=== PATIENT | female | born 1975 | race Asian ===

== ENCOUNTER 2017-09-03 09:41 | Inpatient (IN) | payer OTHER ==
[2017-09-03 10:34] LABS: BASO % 0.3 % (0-2.0); EOS % 1.5 % (0-4.5); HEMATOCRIT 27.7 % (32.4-45.2); HEMOGLOBIN 8.6 GM/dL (10.7-15.3); LYMPH % 19.8 % (8-40); MCHC 30.9 g/dl (32.0-36.0); MEAN CELL VOLUME 62.3 fl (80-96); MEAN PLT VOLUME 8.7 fl (7.5-11.1); MONO % 6.4 % (3.8-10.2); PLATELET COUNT 280 K/MM3 (134-434); RBC 4.45 M/mm3 (3.60-5.2); RETICULOCYTES 2.78 % (0.5-1.5); WHITE BLOOD COUNT 9.9 K/mm3 (4.0-10.0)
[2017-09-03 10:37] LABS: MCH 19.2 pg (25.7-33.7)
[2017-09-03 10:43] LABS: INR 0.87 (0.82-1.09); PROTHROMBIN TIME (PATIENT) 9.8 SEC (9.98-11.88)
[2017-09-03 10:45] LABS: ACTIVATED PTT 26.5 SECONDS (26.9-34.4)
[2017-09-03 10:57] LABS: URINE APPEARANCE SLCLOUDY; URINE BILIRUBIN NEGATIVE (NEGATIVE); URINE BLOOD NEGATIVE (NEGATIVE); URINE COLOR YELLOW; URINE GLUCOSE (UA) NEGATIVE (NEGATIVE); URINE KETONE NEGATIVE (NEGATIVE); URINE LEUK ESTERASE NEGATIVE (NEGATIVE); URINE NITRITE NEGATIVE (NEGATIVE); URINE UROBILINOGEN NEGATIVE mg/dL (0.2-1.0)
[2017-09-03 11:04] LABS: URINE PROTEIN 3+ (NEGATIVE)
[2017-09-03 11:28] LABS: EPI CELLS RARE /HPF (FEW); GRANULAR CASTS 9 /lpf; URINE BACTERIA RARE /hpf (NONE SEEN); URINE HYALINE CAST 9 /lpf; URINE MUCUS MODERATE
[2017-09-03 11:36] VITALS: BMI 36.1
[2017-09-03 11:54] LABS: ANION GAP 10 (8-16); BLOOD UREA NITROGEN 14 mg/dL (7-18); CALCIUM 7.6 mg/dL (8.5-10.1); CHLORIDE 108 mmol/L (98-107); CO2 20 mmol/L (21-32); CREATININE 0.7 mg/dL (0.55-1.02); GAMMA GLUTAMYL TRANSPEPTIDASE 13 U/L (5-85); GLUCOSE,RANDOM 90 mg/dL (74-106); POTASSIUM 4.1 mmol/L (3.5-5.1); SGOT/AST 21 U/L (15-37); SGPT/ALT 13 U/L (12-78); SODIUM 138 mmol/L (136-145); URIC ACID 7.2 mg/dL (2.6-7.2)
[2017-09-03] MEDS ORDERED: glyBURIDE 2.5 MG TABLET (FP) PO ONE (12:00)
[2017-09-03] MEDS: LACTATED RINGERS SOLUTION 1,000 ML IV SCH ×2 (13:15→17:42)
[2017-09-03] MEDS ORDERED: DINOPROSTONE 10 MG VAGINAL SUPPOSITORY VG ONE (15:42)
--- NOTE | 2017-09-03 15:49 | HP ---
Past Medical History - Admission Chief Complaint: Induction of labor History of Present Illness: 41 yo , LMP 12/04/16, EDC 09/10/17, with gestational Hypertension and diabetes, admitted for induction of labor. History Source: Patient Limitations to Obtaining History: No Limitations - Past Medical History ...: 4 ...Para: 3 ...Term: 3 ...: 0 ...Spon : 0 ...Induced : 0 ...Multiple Gestation: 0 ...LMP: 12/04/16 ... Weeks Gestation by Dates: 39.0 ...EDC by Dates: 09/10/17 ...EDC by Sono: 09/10/17 - Past Surgical History Past Surgical History: Yes: None Hx Myomectomy: No Hx Transabdominal Cerclage: No - Smoking History Smoking history: Never smoked Have you smoked in the past 12 months: No - Alcohol/Substance Use Hx Alcohol Use: No History of Substance Use: reports: None - Social History Usual Living Arrangement: Yes: With Spouse History of Recent Travel: No Home Medications - Allergies Allergies/Adverse Reactions: Allergies Allergy/AdvReac Type Severity Reaction Status Date / Time No Known Allergies Allergy Verified 09/03/17 10:26 - Home Medications Home Medications: Ambulatory Orders Glyburide 2.5 mg PO BID 07/18/17 Vit/Iron Fum/Folic AC [ Tablet] 1 tab PO DAILY 07/18/17 Labetalol HCl [Normodyne -] 200 mg PO BID PRN 08/30/17 Family Disease History - Family Disease History Family History: Unremarkable Review of Systems - Review of Systems Constitutional: reports: No Symptoms Eyes: reports: No Symptoms HENT: reports: No Symptoms Neck: reports: No Symptoms Cardiovascular: reports: No Symptoms Respiratory: reports: No Symptoms Gastrointestinal: reports: No Symptoms Genitourinary: reports: No Symptoms Breasts: reports: No Symptoms Reported Musculoskeletal: reports: No Symptoms Integumentary: reports: No Symptoms Neurological: reports: No Symptoms Endocrine: reports: No Symptoms Hematology/Lymphatic: reports: No Symptoms Pain Intensity: 0 Physical Exam - Maternity Vital Signs: Vital Signs Temperature 97.7 F 09/03/17 14:00 Pulse Rate 83 09/03/17 15:00 Respiratory Rate 20 09/03/17 15:00 Blood Pressure 140/65 09/03/17 15:00 O2 Sat by Pulse Oximetry (%) Constitutional: Yes: Well Nourished Eyes: Yes: Conjunctiva Clear HENT: Yes: Atraumatic Neck: Yes: Supple Cardiovascular: Yes: Regular Rate and Rhythm Lungs: Clear to auscultation Breast(s): Yes: WNL - Abdominal Exam/OB Number of Fetuses: Single Presentation: Vertex Decelerations: Late - Vaginal Exam/OB Vaginal Bleediing: No Amniotic Membrane Status: Intact - Physical Exam Musculoskeletal: Yes: WNL Extremities: Yes: WNL Integumentary: Yes: WNL ...Motor Strength: WNL Psychiatric: Yes: Alert, Oriented - Labs Lab Results: CBC, BMP 09/03/17 10:05 09/03/17 10:05 Problem List - Problems (1) Gestational hypertension affecting fourth Code(s): O13.9 - GESTATIONAL HTN W/O SIGNIFICANT PROTEINURIA, UNSP TRIMESTER; O09.40 - SUPERVISION OF W GRAND MULTIPARITY, UNSP TRIMESTER (2) Gestational diabetes mellitus (GDM) affecting fourth Code(s): O24.419 - GESTATIONAL DIABETES MELLITUS IN , UNSP CONTROL; O09.40 - SUPERVISION OF W GRAND MULTIPARITY, UNSP TRIMESTER Assessment/Plan Gestational Hypertension R/O Preeclampsia Gestational diabetes IUP @ 39 weeks Admit for induction of labor
[2017-09-03] MEDS ORDERED: OXYTOCIN 30 UNITS in 0.9% NS 30 UNIT/500 ML INFUS.BAG IVPB SCH (16:00)
--- NOTE | 2017-09-03 16:06 | PN ---
Progress Note (short form) - Note Progress Note: IUP @ 39 weeks, with gestational hypertension and diabetes. She's admitted for IOL. FHR : + late decels [place] : + irregular contractions VE : 260 / -3 AROM : Light meconium Internal monitor placed A / P IUP @ 39 weeks GDMA 2 R/O Pre eclampsia Induction with Pitocin BGM Q 4 hrs Labetalol BID Analgesia as needed Anticipate Problem List - Problems (1) Gestational hypertension affecting fourth Code(s): O13.9 - GESTATIONAL HTN W/O SIGNIFICANT PROTEINURIA, UNSP TRIMESTER; O09.40 - SUPERVISION OF W GRAND MULTIPARITY, UNSP TRIMESTER (2) Gestational diabetes mellitus (GDM) affecting fourth Code(s): O24.419 - GESTATIONAL DIABETES MELLITUS IN , UNSP CONTROL; O09.40 - SUPERVISION OF W GRAND MULTIPARITY, UNSP TRIMESTER
[2017-09-03] MEDS ORDERED: DEXTROSE 5%-LACTATED RINGERS 1,000 ML IV SCH (18:45)
[2017-09-03] MEDS ORDERED: LABETALOL HCL 200 MG TABLET (FP) ONE (22:06)
[2017-09-03] MEDS: LABETALOL HCL 200 MG TABLET (FP) PO SCH (22:10)
--- NOTE | 2017-09-03 23:53 | PN ---
Progress Note (short form) - Note Progress Note: IUP @ 39 weeks, with gestational hypertension and diabetes. Patient re-evaluated, she c/o mild discomfort. FHR : Non Reassuring [place] : + irregular contractions VE : 3-4 / 60 / -3 AROM : Light meconium Internal monitor in place A / P IUP @ 39 weeks GDMA 2 R/O Pre eclampsia Non-Reassuring Heart rate Pre op for Consent signed Anesthesia to see patient Problem List - Problems (1) Gestational hypertension affecting fourth Code(s): O13.9 - GESTATIONAL HTN W/O SIGNIFICANT PROTEINURIA, UNSP TRIMESTER; O09.40 - SUPERVISION OF W GRAND MULTIPARITY, UNSP TRIMESTER (2) Gestational diabetes mellitus (GDM) affecting fourth Code(s): O24.419 - GESTATIONAL DIABETES MELLITUS IN , UNSP CONTROL; O09.40 - SUPERVISION OF W GRAND MULTIPARITY, UNSP TRIMESTER
[2017-09-03] MEDS ORDERED: CITRIC ACID/SODIUM CITRATE 30 ML UNIT-DOSE CUP PO ONE (23:54)
[2017-09-04] MEDS ORDERED: morphine SULFATE/Preservative Free 0.5 MG/ML (1cc Syringe) ONE (00:10)
[2017-09-04] MEDS ORDERED: OXYTOCIN 10 UNITS/ML VIAL ONE ×2 (00:11→01:00)
[2017-09-04] MEDS ORDERED: ceFAZolin SODIUM 1 GM VIAL ONE (00:11)
[2017-09-04 00:19] LABS: URIC ACID 6.3 mg/dL (2.6-7.2)
[2017-09-04] MEDS ORDERED: BUPIVACAINE 0.75% IN DEXTROSE/PF 2ML AMPULE NR ONE (00:25)
[2017-09-04] MEDS ORDERED: LABETALOL HCL 5 MG/1 ML (100MG/20 ML VIAL) ONE (00:33)
[2017-09-04 00:34] LABS: RETICULOCYTES 3.03 % (0.5-1.5)
[2017-09-04] MEDS ORDERED: MIDAZOLAM HCL 2 MG/2 ML SINGLE DOSE VIAL ONE (01:04)
[2017-09-04 01:14] LABS: ARTERIAL BLOOD GAS BASE EXCESS -7.6 meq/l (-2-2)
[2017-09-04 01:19] LABS: ARTERIAL BLOOD GAS pH 7.19 (7.35-7.45)
[2017-09-04 01:20] LABS: ARTERIAL BLD GAS O2 SATURATION 6.9 % (90-98.9); ARTERIAL BLOOD GAS PCO2 60.3 mmHg (35-45); ARTERIAL BLOOD GAS PO2 10.6 mmHg (80-100)
[2017-09-04 01:21] LABS: VENOUS PC02 49.9 mmHg (38-52); VENOUS PH 7.26 (7.32-7.42)
[2017-09-04] MEDS ORDERED: ONDANSETRON 4 MG/2 ML VIAL IVPUSH PRN (01:49)
[2017-09-04] MEDS ORDERED: IBUPROFEN 800 MG/8 ML IJ IVPB PRN (01:49)
[2017-09-04] MEDS ORDERED: OXYTOCIN 20 UNITS in 0.9% NS 20 UNIT/1,000 ML INFUS.BAG IV ONE ×2 (01:59→03:58)
[2017-09-04] MEDS ORDERED: IBUPROFEN 600 MG TABLET (FP) PO PRN (02:10)
[2017-09-04] MEDS ORDERED: METHYLERGONOVINE MALEATE 0.2 MG/1 ML AMP IM PRN (02:10)
[2017-09-04] MEDS ORDERED: OXYTOCIN 20 UNITS in 0.9% NS 20 UNIT/1,000 ML INFUS.BAG IV SCH (02:15)
--- NOTE | 2017-09-04 02:15 | OP ---
Operative Note - Note: Operative Date: 09/04/17 Pre-Operative Diagnosis: Non Reassuring Heart rate Operation: Primary Low Transverse Findings: Baby boy in cephallic position with cord around the neck and body. Post-Operative Diagnosis: Same as Pre-op Surgeon: Mary Ann Quintero Bliss Press Operator: Kassie Balderas Anesthesiologist/COMPLIANCE AND CONTROL ANALYST: Kameron Grey Anesthesia: Spinal Specimens Removed: Placenta Estimated Blood Loss (mls): 600
[2017-09-04] MEDS: oxyCODONE HCL 5 MG TABLET PO PRN ×2 (08:11→21:52)
[2017-09-04] MEDS ORDERED: PCA PUMP KEY 1 EACH EACH ONE (08:40)
--- NOTE | 2017-09-04 09:44 | PN ---
Progress Note (SOAP) - Subjective Chief Complaint: Pt doing well - Current Medications Current Medications: Active Medications Bisacodyl (Dulcolax Suppository -) 10 mg RC PRN PRN PRN Reason: CONSTIPATION Diphenhydramine HCl (Benadryl Injection -) 25 mg IVPUSH Q4H PRN PRN Reason: FOR ITCHING Diphtheria/Tetanus/Acell Pertussis (Boostrix -) 0.5 ml IM .ONCE ONE Stop: 09/05/17 10:01 Ferrous Sulfate (Feosol -) 325 mg PO BID AMANDA Oxytocin/Sodium Chloride (Normal Saline+30 Units Oxytocin) 30 unit in 500 mls @ 1 mls/hr IVPB TITR AMANDA; 0.06 UNIT/HR PRN Reason: Protocol Last Titration: 09/03/17 21:00 Dose: 0.66 unit/hr, 11 mls/hr Dextrose/Lactated Ringer's (D5-Lr -) 1,000 mls @ 125 mls/hr IV ASDIR [facility] [place] Last Admin: 09/03/17 18:25 Dose: 125 mls/hr Oxytocin/Sodium Chloride (Normal Saline+20 Units Oxytocin -) 20 unit in 1,000 mls @ 125 mls/hr IV ASDIR [facility] [place] Last Admin: 09/04/17 02:00 Dose: 125 mls/hr Labetalol HCl (Normodyne -) 200 mg PO BID [facility] [place] [place] Last Admin: 09/03/17 22:10 Dose: 200 mg Methylergonovine Maleate (Methergine Injection -) 0.2 mg IM Q4H PRN PRN Reason: Excessive Bleeding (L&D) Ondansetron HCl (Zofran Injection) 4 mg IVPUSH Q6H PRN PRN Reason: NAUSEA AND/OR VOMITING Oxycodone HCl (Roxicodone -) 5 mg PO Q4H PRN PRN Reason: PAIN LEVEL 4 - 6 Last Admin: 09/04/17 08:11 Dose: 5 mg Multivit/Folic Acid/Iron ( Vitamins (Sjr) -) 1 tab PO DAILY [facility] Simethicone (Mylicon -) 80 mg PO Q4H PRN PRN Reason: GAS - Objective Vital Signs: Vital Signs Temperature 99.5 F 09/04/17 08:00 Pulse Rate 93 H 09/04/17 08:00 Respiratory Rate 20 09/04/17 08:00 Blood Pressure 137/78 09/04/17 08:00 O2 Sat by Pulse Oximetry (%) 98 09/04/17 04:37 Constitutional: Yes: Well Nourished, No Distress Neck: Yes: WNL Cardiovascular: Yes: WNL Respiratory: Yes: WNL Gastrointestinal: Yes: WNL, Normal Bowel Sounds, Abdomen, Obese ....Post : Yes: Uterus firm, Uterus non-tender Musculoskeletal: Yes: WNL Extremities: Yes: WNL Edema: No Wound/Incision: Yes: Dressing Dry and Intact Psychiatric: Yes: WNL, Alert, Oriented Labs Lab Results: CBC, BMP 09/03/17 23:40 09/03/17 10:05 Problem List - Problems (1) delivery delivered Code(s): O82 - ENCOUNTER FOR DELIVERY WITHOUT INDICATION Assessment/Plan POD 1 Cesearean Section Plan OOB pain management
[2017-09-04] MEDS: LABETALOL HCL 200 MG TABLET (FP) PO SCH ×2 (10:05→21:51)
[2017-09-04] MEDS: PRENATAL VITAMINS W/ FOLIC ACID TABLET (FP) PO SCH (11:20)
[2017-09-04] MEDS: FERROUS SO4 325 MG TABLET (FP) PO SCH ×2 (11:20→21:48)
[2017-09-04] MEDS: SIMETHICONE 80 MG TAB.CHEW (FP) PO PRN (21:49)
[2017-09-05] MEDS ORDERED: BISACODYL 10 MG SUPP.RECT RC PRN (02:10)
[2017-09-05] MEDS ORDERED: ACETAMINOPHEN 325 MG TABLET (FP) ONE (03:34)
[2017-09-05] MEDS: SIMETHICONE 80 MG TAB.CHEW (FP) PO PRN ×3 (03:38→20:12)
[2017-09-05] MEDS: oxyCODONE HCL 5 MG TABLET PO PRN ×3 (03:38→20:10)
[2017-09-05] MEDS: ACETAMINOPHEN 325 MG TABLET (FP) PO PRN ×3 (03:40→20:11)
--- NOTE | 2017-09-05 07:58 | PN ---
Progress Note (SOAP) - Subjective Chief Complaint: Pt doing well - Current Medications Current Medications: Active Medications Acetaminophen (Tylenol -) 650 mg PO Q4H PRN PRN Reason: PAIN LEVEL 1-5 Last Admin: 09/05/17 03:40 Dose: 650 mg Bisacodyl (Dulcolax Suppository -) 10 mg RC PRN PRN PRN Reason: CONSTIPATION Diphenhydramine HCl (Benadryl Injection -) 25 mg IVPUSH Q4H PRN PRN Reason: FOR ITCHING Last Admin: 09/04/17 18:03 Dose: 25 mg Diphtheria/Tetanus/Acell Pertussis (Boostrix -) 0.5 ml IM .ONCE ONE Stop: 09/05/17 10:01 Ferrous Sulfate (Feosol -) 325 mg PO BID [facility] Last Admin: 09/04/17 21:48 Dose: Not Given Influenza Virus Vaccine Quadrival (Flulaval Quad [id number]) 60 mcg IM .ONCE ONE Stop: 09/05/17 10:01 Labetalol HCl (Normodyne -) 200 mg PO BID [facility] Last Admin: 09/04/17 21:51 Dose: 200 mg Methylergonovine Maleate (Methergine Injection -) 0.2 mg IM Q4H PRN PRN Reason: Excessive Bleeding (L&D) Ondansetron HCl (Zofran Injection) 4 mg IVPUSH Q6H PRN PRN Reason: NAUSEA AND/OR VOMITING Oxycodone HCl (Roxicodone -) 5 mg PO Q4H PRN PRN Reason: PAIN LEVEL 4 - 6 Last Admin: 09/05/17 03:38 Dose: 5 mg Multivit/Folic Acid/Iron ( Vitamins (Sjr) -) 1 tab PO DAILY [facility] Last Admin: 09/04/17 11:20 Dose: Not Given Simethicone (Mylicon -) 80 mg PO Q4H PRN PRN Reason: GAS Last Admin: 09/05/17 03:38 Dose: 80 mg - Objective Vital Signs: Vital Signs Temperature 98.2 F 09/04/17 22:00 Pulse Rate 98 H 09/04/17 22:00 Respiratory Rate 18 09/05/17 00:00 Blood Pressure 122/68 09/04/17 22:00 O2 Sat by Pulse Oximetry (%) 98 09/04/17 21:00 Constitutional: Yes: Well Nourished, No Distress Neck: Yes: WNL Cardiovascular: Yes: WNL Respiratory: Yes: WNL, Regular Gastrointestinal: Yes: WNL, Normal Bowel Sounds Breast(s): Yes: WNL Musculoskeletal: Yes: WNL Extremities: Yes: WNL Edema: No Wound/Incision: Yes: Clean/Dry, Well Approximated Neurological: Yes: WNL, Alert, Oriented Psychiatric: Yes: WNL, Alert, Oriented Labs Lab Results: CBC, BMP 09/03/17 23:40 09/03/17 10:05 Problem List - Problems (1) delivery delivered Code(s): O82 - ENCOUNTER FOR DELIVERY WITHOUT INDICATION Assessment/Plan POD 2 Cesearean Section due to nonreassuring tracing Anemia Plan OOB pain management Iron BID
[2017-09-05 09:04] LABS: BASO % 0.2 % (0-2.0); EOS % 1.9 % (0-4.5); LYMPH % 15.7 % (8-40); MCHC 30.2 g/dl (32.0-36.0); MEAN CELL VOLUME 63.2 fl (80-96); MEAN PLT VOLUME 8.7 fl (7.5-11.1); MONO % 6.4 % (3.8-10.2); NEUT % 75.8 % (42.8-82.8); PLATELET COUNT 203 K/MM3 (134-434); RBC 3.47 M/mm3 (3.60-5.2); RDW 22.2 % (11.6-15.6); WHITE BLOOD COUNT 11.4 K/mm3 (4.0-10.0)
[2017-09-05 09:11] LABS: MCH 19.1 pg (25.7-33.7)
[2017-09-05 09:12] LABS: HEMOGLOBIN 6.6 GM/dL (10.7-15.3)
[2017-09-05] MEDS ORDERED: FLU VACCINE QUAD 60 MCG/0.5 ML (MDV 17-18) IM ONE (10:00)
[2017-09-05] MEDS: PRENATAL VITAMINS W/ FOLIC ACID TABLET (FP) PO SCH (10:08)
[2017-09-05] MEDS: FERROUS SO4 325 MG TABLET (FP) PO SCH ×2 (10:08→22:25)
[2017-09-05] MEDS: LABETALOL HCL 200 MG TABLET (FP) PO SCH ×2 (10:10→21:59)
[2017-09-05] MEDS ORDERED: DIPHTH,PERTUSS(ACELL),TET 0.5 ML DISP.SYRIN IM ONE (12:00)
[2017-09-05] MEDS ORDERED: FLU VACC QS2017-18 36MOS UP/PF 60 MCG/0.5 ML SYRINGE IM ONE (12:00)
--- NOTE | 2017-09-05 14:02 | PN ---
Progress Note (short form) - Note Progress Note: POD #1 - s/p under spinal anesthesia with duramorph. VSS. Pt. doing well, sitting in chair comfortably. No complaints. Good pain control. No apparent anesthetic complications noted. Continue current care.
[2017-09-05] MEDS: diphenhydrAMINE HCL 25 MG CAPSULE (FP) PO PRN (21:56)
[2017-09-06] MEDS: oxyCODONE HCL 5 MG TABLET PO PRN ×3 (06:22→18:26)
[2017-09-06] MEDS: ACETAMINOPHEN 325 MG TABLET (FP) PO PRN ×3 (06:23→18:27)
[2017-09-06] MEDS: SIMETHICONE 80 MG TAB.CHEW (FP) PO PRN ×3 (06:24→18:26)
[2017-09-06] MEDS: FERROUS SO4 325 MG TABLET (FP) PO SCH ×2 (09:12→22:12)
[2017-09-06] MEDS: LABETALOL HCL 200 MG TABLET (FP) PO SCH ×2 (09:12→22:12)
[2017-09-06] MEDS: PRENATAL VITAMINS W/ FOLIC ACID TABLET (FP) PO SCH (09:12)
--- NOTE | 2017-09-06 09:17 | PN ---
Post Progress Note - Subjective Subjective: 41 yo Para 4 with GDMA2 / Hypertension, status post primary , seen and evaluated. She c/o mild dizziness. Post Day: 2 Type of Delivery: Primary C/S Vital Signs: Vital Signs Temperature 98.5 F 09/05/17 22:00 Pulse Rate 97 H 09/06/17 06:00 Respiratory Rate 18 09/06/17 06:00 Blood Pressure 143/90 09/06/17 06:00 O2 Sat by Pulse Oximetry (%) 98 09/04/17 21:00 Breast Exam: Yes: Soft Uterus: Yes: Fundus Firm Incision: Yes: Dressing dry and intact, Other (Steri strips in place) Abdomen/GI: Yes: Tolerating PO Lochia: Yes: Rubra Lochia, amount: Small Extremities: Yes: Calves non-tender Perineum: Yes: Intact Activity: Ambulating - Labs Labs: CBC WBC 11.4 K/mm3 (4.0-10.0) H 09/05/17 08:00 RBC 3.47 M/mm3 (3.60-5.2) L D 09/05/17 08:00 Hgb 6.6 GM/dL (10.7-15.3) L* D 09/05/17 08:00 Hct 22.0 % (32.4-45.2) L D 09/05/17 08:00 MCV 63.2 fl (80-96) L 09/05/17 08:00 MCH 19.1 pg (25.7-33.7) L 09/05/17 08:00 MCHC 30.2 g/dl (32.0-36.0) L 09/05/17 08:00 RDW 22.2 % (11.6-15.6) H 09/05/17 08:00 Plt Count 203 K/MM3 (134-434) 09/05/17 08:00 MPV 8.7 fl (7.5-11.1) 09/05/17 08:00 Neutrophils % 75.8 % (42.8-82.8) 09/05/17 08:00 Lymphocytes % 15.7 % (8-40) D 09/05/17 08:00 Monocytes % 6.4 % (3.8-10.2) 09/05/17 08:00 Eosinophils % 1.9 % (0-4.5) 09/05/17 08:00 Basophils % 0.2 % (0-2.0) 09/05/17 08:00 Retic Count 3.03 % (0.5-1.5) H 09/03/17 23:40 Haptoglobin 142 mg/dL (34-200) 09/03/17 23:40 Problem List - Problems (1) Gestational hypertension affecting fourth Code(s): O13.9 - GESTATIONAL HTN W/O SIGNIFICANT PROTEINURIA, UNSP TRIMESTER; O09.40 - SUPERVISION OF W GRAND MULTIPARITY, UNSP TRIMESTER (2) Gestational diabetes mellitus (GDM) affecting fourth Code(s): O24.419 - GESTATIONAL DIABETES MELLITUS IN , UNSP CONTROL; O09.40 - SUPERVISION OF W GRAND MULTIPARITY, UNSP TRIMESTER Assessment/Plan Status post primary Severe anemia Blood transfusion recommended ( Pt will try to get permission from ) Continue close monitoring
--- NOTE | 2017-09-06 14:13 | PATH ---
Surgical Pathology Report Patient Name: CARLA ABRAMS [facility]. Rec. 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 Specimen(s) Received PLACENTA Clinical History , 39 weeks gestation, Nonreassuring heart Final Diagnosis PLACENTA, SECTION: 525 G THIRD TRIMESTER PLACENTA WITH TRIVASCULAR UMBILICAL CORD, FOCAL INTRAPARENCHYMAL INFARCT (LESS THAN 10% OF PLACENTAL SURFACE), AND UNREMARKABLE PLACENTAL MEMBRANES. Electronically Signed Carolyn Khan M.D. Gross Description The specimen is received fresh labeled placenta and is a 525 gram, 15 x 13 x 2.5 cm. placenta with attached membranes and umbilical cord. The attached membranes are torres translucent and insert marginally. The umbilical cord measures 21 cm. in length and averages one cm. in diameter. The cord inserts eccentrically, 4 cm. to the nearest margin. Cut surface of the umbilical cord reveals 3 vessels. The surface is gordon-blue with minimal fibrin deposition and appropriate caliber vessels. The maternal surface is red-brown with focal defects. Sectioning reveals red-brown, spongy parenchyma. Focal intraparenchymal lesion measuring 1.2 cm is identified. Director Of Outside Sales sections are submitted in three cassettes as follows: 1- membrane rolls and umbilical cord; 2, intraparenchymal lesion -3- full thickness sections of placenta. VJ/09/05/2017 michelle/09/05/2017
[2017-09-07 08:00] LABS: BASO % 0.4 % (0-2.0); EOS % 1.8 % (0-4.5); HEMATOCRIT 30.5 % (32.4-45.2); HEMOGLOBIN 9.5 GM/dL (10.7-15.3); LYMPH % 8.1 % (8-40); MCH 21.5 pg (25.7-33.7); MCHC 31.3 g/dl (32.0-36.0); MEAN CELL VOLUME 68.8 fl (80-96); MEAN PLT VOLUME 9.1 fl (7.5-11.1); MONO % 4.9 % (3.8-10.2); NEUT % 84.8 % (42.8-82.8); PLATELET COUNT 252 K/MM3 (134-434); RBC 4.42 M/mm3 (3.60-5.2); RDW 25.9 % (11.6-15.6); WHITE BLOOD COUNT 12.3 K/mm3 (4.0-10.0)
[2017-09-07] MEDS ORDERED: ACETAMINOPHEN 325 MG TABLET (FP) PO PRN (08:53)
[2017-09-07] MEDS: SIMETHICONE 80 MG TAB.CHEW (FP) PO PRN ×2 (09:01→21:34)
[2017-09-07] MEDS: ACETAMINOPHEN 325 MG TABLET (FP) PO PRN ×2 (09:01→21:35)
[2017-09-07] MEDS: oxyCODONE HCL 5 MG TABLET PO PRN ×2 (09:03→21:34)
[2017-09-07] MEDS: LABETALOL HCL 200 MG TABLET (FP) PO SCH ×2 (09:04→21:36)
[2017-09-07] MEDS: FERROUS SO4 325 MG TABLET (FP) PO SCH ×2 (09:05→21:34)
[2017-09-07] MEDS: PRENATAL VITAMINS W/ FOLIC ACID TABLET (FP) PO SCH (09:07)
[2017-09-07] MEDS: diphenhydrAMINE HCL 25 MG CAPSULE (FP) PO PRN ×2 (13:11→22:48)
--- NOTE | 2017-09-07 15:46 | PN ---
Post Progress Note - Subjective Subjective: 41 yo Para 4 status post primary , seen and evaluated. She denies any headache, blurry vision nor epigastric pain. Hematocrit has improved after blood transfusion but blood pressure is persistently elevated. Post Day: 3 Type of Delivery: Repeat C/S Vital Signs: Vital Signs Temperature 98.1 F 09/07/17 14:00 Pulse Rate 80 09/07/17 14:00 Respiratory Rate 20 09/07/17 14:00 Blood Pressure 150/81 09/07/17 14:00 O2 Sat by Pulse Oximetry (%) 96 09/06/17 22:00 Breast Exam: Yes: Soft Uterus: Yes: Fundus Firm Incision: Yes: Dressing dry and intact Abdomen/GI: Yes: Abdomen soft, Tolerating PO Lochia: Yes: Rubra Lochia, amount: Small Extremities: Yes: Edema Perineum: Yes: Intact Activity: Ambulating - Labs Labs: CBC WBC 12.3 K/mm3 (4.0-10.0) H 09/07/17 07:00 RBC 4.42 M/mm3 (3.60-5.2) D 09/07/17 07:00 Hgb 9.5 GM/dL (10.7-15.3) L D 09/07/17 07:00 Hct 30.5 % (32.4-45.2) L D 09/07/17 07:00 MCV 68.8 fl (80-96) L D 09/07/17 07:00 MCH 21.5 pg (25.7-33.7) L 09/07/17 07:00 MCHC 31.3 g/dl (32.0-36.0) L 09/07/17 07:00 RDW 25.9 % (11.6-15.6) H 09/07/17 07:00 Plt Count 252 K/MM3 (134-434) D 09/07/17 07:00 MPV 9.1 fl (7.5-11.1) 09/07/17 07:00 Neutrophils % 84.8 % (42.8-82.8) H 09/07/17 07:00 Lymphocytes % 8.1 % (8-40) D 09/07/17 07:00 Monocytes % 4.9 % (3.8-10.2) 09/07/17 07:00 Eosinophils % 1.8 % (0-4.5) 09/07/17 07:00 Basophils % 0.4 % (0-2.0) 09/07/17 07:00 Retic Count 3.03 % (0.5-1.5) H 09/03/17 23:40 Haptoglobin 142 mg/dL (34-200) 09/03/17 23:40 Problem List - Problems (1) Gestational hypertension affecting fourth Code(s): O13.9 - GESTATIONAL HTN W/O SIGNIFICANT PROTEINURIA, UNSP TRIMESTER; O09.40 - SUPERVISION OF W GRAND MULTIPARITY, UNSP TRIMESTER (2) Gestational diabetes mellitus (GDM) affecting fourth Code(s): O24.419 - GESTATIONAL DIABETES MELLITUS IN , UNSP CONTROL; O09.40 - SUPERVISION OF W GRAND MULTIPARITY, UNSP TRIMESTER Assessment/Plan Status post primary Status post blood transfusion Gestational hypertension Continue Labetalol Add Procardia Ambulation Continue close monitoring
[2017-09-07] MEDS: NIFEdipine E.R. 30 MG TABLET (FP) PO SCH (16:41)
[2017-09-07] MEDS ORDERED: NIFEdipine 10 MG CAPSULE (FP) PO SCH (22:00)
[2017-09-07] MEDS ORDERED: CALAMINE 8% TOPICAL LOTION 177 ML BOTTLE TP PRN (22:16)
[2017-09-08] MEDS: diphenhydrAMINE HCL 25 MG CAPSULE (FP) PO PRN (05:24)
[2017-09-08] MEDS: ACETAMINOPHEN 325 MG TABLET (FP) PO PRN ×2 (05:24→11:26)
--- NOTE | 2017-09-08 08:20 | PN ---
Post Progress Note Post Day: 4 Type of Delivery: Repeat C/S Vital Signs: Vital Signs Temperature 97.7 F 09/08/17 06:32 Pulse Rate 85 09/08/17 06:32 Respiratory Rate 20 09/08/17 06:32 Blood Pressure 132/70 09/08/17 06:32 O2 Sat by Pulse Oximetry (%) 96 09/06/17 22:00 Breast Exam: Yes: Soft Uterus: Yes: Fundus Firm, Fundus below umbilicus Incision: Yes: Sutures intact Abdomen/GI: Yes: Abdomen soft Lochia: Yes: Serosa Lochia, amount: Moderate Extremities: Yes: Calves non-tender Perineum: Yes: Intact Activity: Ambulating - Labs Labs: CBC WBC 12.3 K/mm3 (4.0-10.0) H 09/07/17 07:00 RBC 4.42 M/mm3 (3.60-5.2) D 09/07/17 07:00 Hgb 9.5 GM/dL (10.7-15.3) L D 09/07/17 07:00 Hct 30.5 % (32.4-45.2) L D 09/07/17 07:00 MCV 68.8 fl (80-96) L D 09/07/17 07:00 MCH 21.5 pg (25.7-33.7) L 09/07/17 07:00 MCHC 31.3 g/dl (32.0-36.0) L 09/07/17 07:00 RDW 25.9 % (11.6-15.6) H 09/07/17 07:00 Plt Count 252 K/MM3 (134-434) D 09/07/17 07:00 MPV 9.1 fl (7.5-11.1) 09/07/17 07:00 Neutrophils % 84.8 % (42.8-82.8) H 09/07/17 07:00 Lymphocytes % 8.1 % (8-40) D 09/07/17 07:00 Monocytes % 4.9 % (3.8-10.2) 09/07/17 07:00 Eosinophils % 1.8 % (0-4.5) 09/07/17 07:00 Basophils % 0.4 % (0-2.0) 09/07/17 07:00 Retic Count 3.03 % (0.5-1.5) H 09/03/17 23:40 Haptoglobin 142 mg/dL (34-200) 09/03/17 23:40 Assessment/Plan s/p section day 4 gestational hypertension currently blood pressure is within normal limits. vital signs are stable h/h are within normal limits s/p blood transfusion . condition is stable plan to discharge home today f/u in 2 weeks
[2017-09-08 09:07] VITALS: TEMP 97.8
[2017-09-08 10:08] VITALS: BP 123/66; PULSE 85
[2017-09-08] MEDS: FERROUS SO4 325 MG TABLET (FP) PO SCH (10:16)
[2017-09-08] MEDS: PRENATAL VITAMINS W/ FOLIC ACID TABLET (FP) PO SCH (10:16)
[2017-09-08] MEDS: LABETALOL HCL 200 MG TABLET (FP) PO SCH (10:17)
[2017-09-08] MEDS: NIFEdipine E.R. 30 MG TABLET (FP) PO SCH (10:19)
[2017-09-08] MEDS: oxyCODONE HCL 5 MG TABLET PO PRN (11:25)
[2017-09-08] MEDS: SIMETHICONE 80 MG TAB.CHEW (FP) PO PRN (11:27)
--- NOTE | 2017-09-08 22:49 | DS ---
Physical Exam-IT PORTFOLIO MANAGER Vital Signs: Vital Signs Temperature 97.8 F 09/08/17 07:30 Pulse Rate 85 09/08/17 10:08 Respiratory Rate 20 09/08/17 10:08 Blood Pressure 123/66 09/08/17 10:08 O2 Sat by Pulse Oximetry (%) 96 09/06/17 22:00 Constitutional: Yes: Well Nourished Eyes: Yes: Conjunctiva Clear HENT: Yes: Atraumatic Neck: Yes: Supple Cardiovascular: Yes: Regular Rate and Rhythm Respiratory: Yes: Regular Gastrointestinal: Yes: Normal Bowel Sounds External Genitalia: Yes: Normal Vaginal Exam: Yes: Normal Cervix: Yes: Normal Uterus: Yes: Firm Wound/Incision: Yes: Well Approximated, Steri Strips (in place) Neurological: Yes: Alert, Oriented ...Motor Strength: WNL Psychiatric: Yes: Alert, Oriented Labs: CBC, BMP 09/07/17 07:00 09/03/17 10:05 Delivery - Delivery Type of Anesthesia: Spinal Episiotomy/Laceration: None EBL (cc): 500 Delivery, Single - Stages of Labor Date of Delivery: 09/04/17 Time of Delivery: 00:44 Time Placenta Delivered: 00:45 - Condition of Infant Pigment Making Supervisor/Dealer Support Technician Present: Yes Name: Anel Mcclain Infant Gender: Male Weight: 6 lb 2 oz Position: Left, OA Total Hours ROM (Hrs/Mins): [id number] - 1 Minute Total Score: 9 5 Minutes Total Score: 9 - [place] Feeding Plan Initial Plan: Elected not to breastfeed exclusively throughout hospitalization Discharge Summary Reason For Visit: LABOR INDUCTION Gestational diabetes with Induced Hypertension Procedures: Principal: Primary Low Transverse Hospital Course: Patient treated for hypertension . She was also given treatment for body itch. Condition: Good - Instructions Diet, Activity, Other Instructions: ambulate ad huy continue current diet Call Dr. Quintero and make appt. to be seen in one week. If heavy bleeding, fever, or pain, call Aftab Irizarry ordered Labetalol and Percocet at [facility] via telephone for patient home medications. Referrals: Mary Ann Quintero MD [Staff Physician] - Disposition: HOME - Home Medications Comprehensive Discharge Medication List: Ambulatory Orders Glyburide 2.5 mg PO BID 07/18/17 Vit/Iron Fum/Folic AC [ Tablet] 1 tab PO DAILY 07/18/17 Labetalol HCl [Normodyne -] 200 mg PO BID PRN 08/30/17
== END 2017-09-08 13:50 | disposition home or self-care (01) | DRG 540 ==
LOC: JLDR 09:41 → J3W 09-04 04:00
PROVIDERS: ADMIT Obstetrics & Gynecology; ATTEND Obstetrics & Gynecology
PROC: 10D00Z1 Extraction of Products of Conception, Low, Open Approach (ICD-10-PCS; principal; 2017-09-05)
PROC: 30233N1 Transfusion of Nonautologous Red Blood Cells into Peripheral Vein, Percutaneous Approach (ICD-10-PCS; 2017-09-06)
DX: O76 Abnormality in fetal heart rate and rhythm complicating labor and delivery (principal); O13.3 Gestational [pregnancy-induced] hypertension without significant proteinuria, third trimester; O24.429 Gestational diabetes mellitus in childbirth, unspecified control; O99.02 Anemia complicating childbirth; Z3A.39 39 weeks gestation of pregnancy; Z37.0 Single live birth
CPT/HCPCS: 36415; 36430; 36600; 80048; 81003; 81015; 82803; 82962; 82977; 83010; 84450; 84460; 84550; 85025; 85032; 85044; 85610; 85730; 86593; 86850; 86900; 86901; 86922; 88307-TC; 90686; 90715; G0008; P9038; P9058

== ENCOUNTER 2019-04-15 17:36 | Emergency (ER) | payer OTHER ==
[2019-04-15 17:45] VITALS: BP 142/73; PULSE 88; TEMP 98; BMI 33.6
--- NOTE | 2019-04-15 17:47 | PDOC ---
Rapid Medical Evaluation Time Seen by Provider: 04/15/19 17:41 Medical Evaluation: Allergies Allergy/AdvReac Type Severity Reaction Status Date / Time No Known Allergies Allergy Verified 09/03/17 10:26 04/15/19 17:41 I have performed a brief in-person evaluation of this patient. The patient presents with a chief complaint of: Sent to ED by PMD for anemia. H/ H 7.3/25.9 on labs drawn on 03/26/19 (has report on her person). Pt states she was told about results until her appt today. Was on iron pills in past but not now and had 1 blood transfusion during in 2018. C/o feeling fatigued, no dizziness, SOB, CP, or GI bleeding Pertinent physical exam findings:stable I have ordered the following:labs The patient will proceed to the ED for further evaluation. 04/15/19 17:45 Discharge Disposition - Diagnosis Anemia Qualifiers: Anemia type: unspecified type Qualified Code(s): D64.9 - Anemia, unspecified - Referrals - Patient Instructions - Post Discharge Activity
--- NOTE | 2019-04-15 18:05 | PDOC ---
History of Present Illness - General Chief Complaint: Weakness Stated Complaint: SENT BY PCP/SEVERE ANEMIA Time Seen by Provider: 04/15/19 17:41 History Source: Patient Exam Limitations: No Limitations - History of Present Illness Initial Comments: 04/15/19 18:58 43 yo Past History - Past Medical History Allergies/Adverse Reactions: Allergies Allergy/AdvReac Type Severity Reaction Status Date / Time No Known Allergies Allergy Verified 04/15/19 17:45 Home Medications: Ambulatory Orders Glyburide 2.5 mg PO BID 07/18/17 Vit/Iron Fum/Folic AC [ Tablet] 1 tab PO DAILY 07/18/17 Labetalol HCl [Normodyne -] 200 mg PO BID PRN 08/30/17 Anemia: Yes (BLOOD TRANSFUSION) Asthma: No Cancer: No Cardiac Disorders: No COPD: No Diabetes: Yes (gestational diabetic this ) HTN: Yes (gestational hypertension this ) Seizures: No Thyroid Disease: No - Psycho Social/Smoking Cessation Hx Smoking History: Never smoked Have you smoked in the past 12 months: No Hx Alcohol Use: No Drug/Substance Use Hx: No Substance Use Type: None Hx Substance Use Treatment: No *Physical Exam - Vital Signs Last Vital Signs Temp Pulse Resp BP Pulse Ox 98 F 88 18 142/73 100 04/15/19 17:41 04/15/19 17:41 04/15/19 17:41 04/15/19 17:41 04/15/19 17:41 ED Treatment Course - LABORATORY CBC & Chemistry Diagram: 04/15/19 17:59 04/15/19 17:59 Discharge - Discharge Information Problems reviewed: Yes Clinical Impression/Diagnosis: Anemia Qualifiers: Anemia type: unspecified type Qualified Code(s): D64.9 - Anemia, unspecified Disposition: HOME - Admission No - Follow up/Referral Referrals: Deanna Zapata MD [Primary Care Provider] - - Patient Discharge Instructions Patient Printed Discharge Instructions: DI for Iron Deficiency Anemia-Adult Additional Instructions: Please follow up with your primary medical doctor Dr. Zapata for further work up and care. Please return to the emergency department if you have worsening symptoms or new concerning symptoms. Thank you. Please follow up with Dr. Zapata in 1 week. - Post Discharge Activity
--- NOTE | 2019-04-15 18:25 | PDOC ---
Documentation entered by Stella Richards SCRIBE, acting as scribe for Geetha Davies MD. Geetha Davies MD: This documentation has been prepared by the Susie saunders Adrianna, SCRIBE, under my direction and personally reviewed by me in its entirety. I confirm that the documentation accurately reflects all work, treatment, procedures, and medical decision making performed by me. Attending Attestation - Resident Resident Name: NaiVikas - ED Attending Attestation I have performed the following: I have examined & evaluated the patient, The case was reviewed & discussed with the resident, I agree w/resident's findings & plan, Exceptions are as noted - HPI HPI: 04/15/19 18:24 43-year-old female referred in from her doctor's office for anemia. She had a blood drawn in Dr. Deanna Zapata's office March 26 and today she went for follow- up appointment and was told her hemoglobin was 7.5 She has complaint of 2 weeks of fatigue - Physicial Exam PE: 04/15/19 19:07 43-year-old female seated on a gurney in no acute distress Head normocephalic atraumatic Neck is supple Lungs are clear to auscultation bilaterally CVS regular rate and rhythm S1-S2 Abdomen nontender Skin warm and dry Neuro alert and oriented x3, ambulatory Psych appropriate - Medical Decision Making 04/15/19 18:25 43-year-old female who gave 1 and half years ago has a history of anemia and has had a blood transfusion in 2018 She has had fatigue for several weeks but denies shortness of breath or chest pain melena or any rectal bleeding 04/15/19 19:08 Review of systems this patient denies having any shortness of breath, dizziness , chest pain Her hemoglobin is 7.4 and her hematocrit is still 25. These were the same level she had on March 26. She does not want to stay for any blood transfusions because she has small children who will be alone at home shortly. EKG is normal sinus rhythm with no signs of any ischemia normal QTC there are no ST or T wave abnormalities Plan patient to follow-up again with her PCP Dr. Aggie Love or Dr. Cordova in to make arrangements for blood transfusion or for her to actually take her iron as she is prescribed The patient has been avoiding taking iron because of the constipating side effects We discussed the use of stool softeners or MiraLAX to help her with her symptoms so she can try to take her iron Impression chronic anemia Plan please follow-up with Dr. Deanna Zapata or Dr. Andrade
[2019-04-15 18:34] LABS: BASO % 0.2 % (0-2.0); EOS % 3.4 % (0-4.5); HEMATOCRIT 25.5 % (32.4-45.2); HEMOGLOBIN 7.4 GM/dL (10.7-15.3); MCHC 28.9 g/dl (32.0-36.0); MEAN CELL VOLUME 54.8 fl (80-96); MEAN PLT VOLUME 9.2 fl (7.5-11.1); MONO % 7.8 % (3.8-10.2); NEUT % 66.6 % (42.8-82.8); PLATELET COUNT 297 K/MM3 (134-434); RBC 4.65 M/mm3 (3.60-5.2); RDW 21.6 % (11.6-15.6); WHITE BLOOD COUNT 9.9 K/mm3 (4.0-10.0)
[2019-04-15 18:36] LABS: MCH 15.8 pg (25.7-33.7)
[2019-04-15 18:47] LABS: PROTHROMBIN TIME (PATIENT) 11.8 SEC (9.7-13.0)
[2019-04-15 18:51] LABS: PH,URINE 5.5 (5.0-8.0); URINE APPEARANCE CLEAR; URINE BILIRUBIN NEGATIVE (NEGATIVE); URINE COLOR YELLOW; URINE GLUCOSE (UA) NEGATIVE (NEGATIVE); URINE KETONE NEGATIVE (NEGATIVE); URINE LEUK ESTERASE NEGATIVE (NEGATIVE); URINE NITRITE NEGATIVE (NEGATIVE); URINE PROTEIN NEGATIVE (NEGATIVE)
[2019-04-15 18:53] LABS: ALBUMIN 3.4 g/dl (3.4-5.0); BILIRUBIN,TOTAL 0.3 mg/dL (0.2-1); CALCIUM 8.8 mg/dL (8.5-10.1); CREATININE 0.6 mg/dL (0.55-1.3); POTASSIUM 4.1 mmol/L (3.5-5.1); TOT PROT 7.6 g/dl (6.4-8.2)
--- NOTE | 2019-04-16 12:11 | EKG ---
Test Reason : Blood Pressure : / mmHG Vent. Rate : 084 BPM Atrial Rate : 084 BPM P-R Int : 134 ms QRS Dur : 082 ms QT Int : 384 ms P-R-T Axes : 033 032 012 degrees QTc Int : 453 ms NORMAL SINUS RHYTHM NORMAL ECG WHEN COMPARED WITH ECG OF 23-SEP-2014 10:59, NO SIGNIFICANT CHANGE WAS FOUND Confirmed by FRANCO ABURTO MD ([id number]) on 04/16/2019 12:11:21 PM Referred By: Confirmed By:FRANCO ABURTO MD
== END 2019-04-15 19:17 | disposition home or self-care (01) ==
LOC: JER 17:36
DX: D64.89 Other specified anemias (principal); Z86.32 Personal history of gestational diabetes; I10 Essential (primary) hypertension; Z79.84 Long term (current) use of oral hypoglycemic drugs
CPT/HCPCS: 36415; 80053; 81003; 84703; 85025; 85610; 86850; 86900; 86901; 93005; 93010; 99283-25